=== PATIENT | male | born 1950 | race Caucasian/White ===

== ENCOUNTER → 2016-11-04 | Outpatient (CLI) | payer BC, OTHER | LOC: OD 13:04 | PROVIDERS: ATTEND Internal Medicine | DX: K72.90 Hepatic failure, unspecified without coma (principal) | CPT/HCPCS: 36415; 82140 ==

== ENCOUNTER → 2019-11-30 | Outpatient (CLI) | payer MEDICARE, OTHER ==
[2019-11-30 14:19] LABS: CREATINE KINASE MB 1.47 ng/mL (<4.55)
[2019-11-30 14:20] LABS: TROPONIN I < 0.012 ng/mL
== END ==
LOC: OD 13:13
PROVIDERS: ATTEND Family Medicine
DX: I45.10 Unspecified right bundle-branch block (principal)
CPT/HCPCS: 36415; 82553; 84484